=== PATIENT | male | born 1940 | race Two or more races ===

== ENCOUNTER 2020-02-22 07:48 | Outpatient (CLI) | payer OTHER | END 2020-02-22 07:55 | disposition home or self-care (01) | LOC: RAD 07:48 | PROVIDERS: ATTEND Orthopaedic Surgery | DX: M25.552 Pain in left hip (principal); M54.5 Low back pain ==

== ENCOUNTER 2020-03-04 10:41 | Outpatient (CLI) | payer OTHER | END 2020-03-04 13:17 | disposition home or self-care (01) | LOC: NUCLEAR 10:41 | PROVIDERS: ATTEND Orthopaedic Surgery | DX: M81.0 Age-related osteoporosis without current pathological fracture (principal) ==

== ENCOUNTER → 2020-07-12 | Outpatient (CLI) | payer OTHER | END | disposition home or self-care (01) | LOC: RAD 12:38 | PROVIDERS: ATTEND Orthopaedic Surgery | DX: R07.89 Other chest pain (principal); J43.8 Other emphysema; M25.511 Pain in right shoulder; I70.0 Atherosclerosis of aorta ==

== ENCOUNTER 2020-08-13 08:52 | Outpatient (CLI) | payer OTHER | END 2020-08-13 09:02 | disposition home or self-care (01) | LOC: RAD 08:52 | PROVIDERS: ATTEND Orthopaedic Surgery | DX: M75.121 Complete rotator cuff tear or rupture of right shoulder, not specified as traumatic (principal) ==

== ENCOUNTER 2021-07-25 08:40 | Outpatient (CLI) | payer OTHER | END 2021-07-25 08:50 | disposition home or self-care (01) | LOC: PPH VACUNA 08:40 | PROVIDERS: ATTEND Emergency Medicine Pediatric Emergency Medicine | DX: Z23 Encounter for immunization (principal) ==

== ENCOUNTER 2022-03-26 10:02 | Outpatient (CLI) | payer OTHER | END 2022-03-26 10:05 | disposition home or self-care (01) | LOC: RAD 10:02 | PROVIDERS: ATTEND Orthopaedic Surgery | DX: M25.511 Pain in right shoulder (principal); M25.551 Pain in right hip ==

== ENCOUNTER 2022-07-24 | Outpatient (CLI) | payer OTHER | END 2022-07-24 00:15 | disposition home or self-care (01) | LOC: PPH VACUNA | PROVIDERS: ATTEND Emergency Medicine Pediatric Emergency Medicine | DX: Z23 Encounter for immunization (principal) ==

== ENCOUNTER 2023-04-09 13:41 | Outpatient (CLI) | payer OTHER | END 2023-04-09 13:43 | disposition home or self-care (01) | LOC: NUCLEAR 13:41 | DX: M81.0 Age-related osteoporosis without current pathological fracture (principal) ==

== ENCOUNTER 2024-01-12 08:35 | Outpatient (CLI) | payer OTHER | END 2024-01-12 08:41 | disposition home or self-care (01) | LOC: SONOGRAMA 08:35 | PROVIDERS: ATTEND Anesthesiology Pain Medicine | DX: M25.562 Pain in left knee (principal) ==

== ENCOUNTER 2024-02-08 10:49 | Outpatient (CLI) | payer OTHER | END 2024-02-08 10:55 | disposition home or self-care (01) | LOC: RAD 10:49 | PROVIDERS: ATTEND Internal Medicine Rheumatology | DX: M15.0 Primary generalized (osteo)arthritis (principal) ==

== ENCOUNTER 2024-03-28 09:05 | Emergency (ER) | payer OTHER ==
[~2024-03-28] VITALS: Ht 167.6 cm; Wt 56.2 kg
[2024-03-28] MEDS ORDERED: ATORVASTATIN CA10 MG PO (09:26)
[2024-03-28] MEDS ORDERED: BARIUM SULFATE 450 ML ORAL.SUSP PO ONE (10:10)
[2024-03-28 10:37] LABS: PH,URINE 6.5 (5.0-8.0); URINE APPEARANCE Clear; URINE BILIRRUBIN Negative (NEGATIVE); URINE BLOOD Negative; URINE COLOR Yellow; URINE GLUCOSE Negative (NEGATIVE); URINE KETONE Negative (NEGATIVE); URINE LEUKOCYTE Negative; URINE NITRATE Negative; URINE PROTEIN Negative (NEGATIVE); URINE UROBILINOGEN 0.2 E.U./dl
[2024-03-28 10:38] LABS: HEMATOCRIT 38.7 % (39.0-48.0); HEMOGLOBIN 13.3 g/dL (13-16.00); MEAN CELL VOLUME 89.8 fL (80.0-100.00); MEAN CORPUSCULAR HEMOGLOBIN 30.9 pg (27.00-32.0); MEAN CORPUSCULAR HGB CONC 34.4 g/dl (32.0-36.0); PLATELET COUNT 226 K/uL (150-450); RED BLOOD COUNT 4.31 M/uL (4.00-6.00); RED CELL DISTRIBUTION WIDTH 13.7 % (11.5-14.5); URINE BACTERIA 35.4 uL (0.0-1933)
[2024-03-28 10:41] LABS: URINE EPITHELIAL CELLS 1.1 uL (0.0-38.8); URINE WBC 1.2 uL (0.0-23.2)
[2024-03-28 11:02] LABS: BILIRUBIN TOTAL 0.73 mg/dL (0.3-1.2); CALCIUM 9.5 mg/dL (8.5-10.1); CREATININE SERUM 1.14 mg/dL (0.70-1.30); GFR 61.5; GLOBULINA 4.1 G/DL (2.4-3.5); POTASSIUM 4.78 mEq/L (3.5-5.1); TOTAL PROTEIN 8.1 gm/dL (6.4-8.2)
[2024-03-28] MEDS ORDERED: FAMOTIDINE/PF 20 MG/2 ML VIAL IV PUSH ONE (17:30)
[2024-03-28] MEDS ORDERED: FAMOTIDINE/PF 20 MG/2 ML VIAL ONE (17:47)
== END 2024-03-28 18:26 | disposition home or self-care (01) ==
LOC: ER 09:08
PROVIDERS: Emergency Medicine
DX: R10.9 Unspecified abdominal pain (principal); E78.00 Pure hypercholesterolemia, unspecified
CPT/HCPCS: 36415; 74177; 96365; 99284; J3490; Q9965